=== PATIENT | male | born 1985 | race Caucasian/White ===

== ENCOUNTER 2020-03-31 11:07 | Emergency (ER) | payer OTHER ==
--- NOTE | 2020-03-31 11:16 | ED Physician Documentation ---
PD HPI UPPER EXT INJURY - Stated complaint Stated Complaint: L SHOULDER PX - Chief complaint Chief Complaint: Ext Problem - History obtained from History obtained from: Patient - History of Present Illness Location: Left, Shoulder Type of injury: Fall (tripped and fell to left lateral shoulder, with pain at anterior and AC area of shoulder.) Where injury occurred: Street (walking dog from his house) Timing - onset: Last night Timing - details: Abrupt onset, Still present Improved by: Rest Worsened by: Moving (extension and abduction mostly) Associated symptoms: No: Weakness, Numbness, Swelling Similar symptoms before: Has not had sx before Review of Systems Skin: denies: Abrasion (s), Laceration (s) Musculoskeletal: denies: Neck pain, Back pain Neurologic: denies: Focal weakness, Numbness, Head injury PD PAST MEDICAL HISTORY - Past Medical History Past Medical History: No - Allergies Allergies/Adverse Reactions: Allergies Allergy/AdvReac Type Severity Reaction Status Date / Time No Known Drug Allergies Allergy Verified 03/31/20 11:10 PD ED PE NORMAL - Vitals Vital signs reviewed: Yes - General General: Alert and oriented X 3, No acute distress, Well developed/nourished - HEENT HEENT: Atraumatic - Neck Neck: Supple, no meningeal sign, No bony TTP - Cardiac Cardiac: RRR, No murmur - Respiratory Respiratory: Clear bilaterally - Derm Derm: Normal color, Warm and dry - Extremities Extremities: Other (left shoulder tender anteriorly and at AC area without deformity. Has ROM in all directions. Pain mainly with extension and abduction against resistance. ) - Neuro Neuro: Alert and oriented X 3, No motor deficit, No sensory deficit Results - Vitals Vitals: Vital Signs - 24 hr 03/31/20 03/31/20 11:10 13:33 Temperature 36.5 C Heart Rate 84 72 Respiratory 16 16 Rate Blood Pressure 134/72 H 122/77 O2 Saturation 97 96 Oxygen O2 Source Room air - Rads (name of study) left shoulder Radiology: Prelim report reviewed (seems strain of shoulder with possible AC strain or rotator cuff, but seems low grade for either. ), See rad report PD MEDICAL DECISION MAKING - ED course Complexity details: reviewed results, considered differential, d/w patient Departure - Departure Disposition: 01 Home, Self Care Clinical Impression: Accidental fall Qualifiers: Encounter type: initial encounter Qualified Code(s): W19.XXXA - Unspecified fall, initial encounter Left shoulder strain Qualifiers: Encounter type: initial encounter Qualified Code(s): S46.912A - Strain of unspecified muscle, fascia and tendon at shoulder and upper arm level, left arm, initial encounter Condition: Stable Record reviewed to determine appropriate education?: Yes Instructions: ED Sprain Shoulder Follow-Up: TIM JEAN [Primary Care Provider] - Comments: No fractures or separations noted on your x-ray. I presume you have some injury of the ligaments or tendons through the shoulder and commonly this will hurt for several days to week. Avoid overhead reaching, push pull, repetitive use of the arm and to have it supported in a sling for a good part of the time. Gentle range of motion of the shoulder down low though so it does not stiffen up. Do this several times a day. Anti-inflammatory such as ibuprofen 3 times a day for the next week. Add Tylenol if needed. Recheck if not improved over the next several days to week. Forms: Activity restrictions Discharge Date/Time: 03/31/20 13:45
[2020-03-31] MEDS ORDERED: IBUPROFEN 800 MG TABLET PO STA (11:31)
--- NOTE | 2020-03-31 13:00 | XRAY Report ---
PROCEDURE: Shoulder 3 View LT INDICATIONS: fell walking dog last evening TECHNIQUE: 3 views of the shoulder were acquired. COMPARISON: None. FINDINGS: Bones: No fractures or dislocations. No suspicious bony lesions. Visualized ribs appear intact. Soft tissues: No suspicious soft tissue calcifications. IMPRESSION: No acute bony abnormality is seen by plain film. If there is focal tenderness or other strong clinical concern for a fracture that is not seen on this plain film study, please consider a dedicated CT for further evaluation. Reviewed by: Hi Seals MD on 03/31/2020 11:58 AM [facility] Approved by: Hi Seals MD on 03/31/2020 11:58 AM [facility] Station ID: [id number]
[2020-03-31 13:33] VITALS: BP 122/77
== END 2020-03-31 13:45 | disposition home or self-care (01) ==
LOC: ED 11:07
DX: S46.912A Strain of unspecified muscle, fascia and tendon at shoulder and upper arm level, left arm, initial encounter (principal); W01.0XXA Fall on same level from slipping, tripping and stumbling without subsequent striking against object, initial encounter; Y93.K1 Activity, walking an animal; Y92.410 Unspecified street and highway as the place of occurrence of the external cause
CPT/HCPCS: 73030; 99282; 99283; A9270

== ENCOUNTER 2023-07-21 14:29 | Outpatient (CLI) | payer OTHER ==
--- NOTE | 2023-07-21 15:13 | Sleep Patient Instructions ---
Sleep Center Visit Summary - Patient Visit Information Reason for Visit: Initial consultation - Patient Instructions Additional Instructions: You will continue with CPAP therapy with pressure set at 11-17 cmH2O. A supply prescription will be updated with your DME as soon as we get a copy of your last sleep study. We encourage you to continue to try to lose weight. Please follow up with the sleep care office in 1 year. - Clinic Information Contact: [facility] [address] [place] [email or web address] T: [phone]
--- NOTE | 2023-07-21 15:21 | SLEEP CARE CONSULTATION ---
Information from patient questionnaire entered by Lanette Sosa. I have reviewed and concur with the information entered by Lanette Sosa. This document represents the service I personally performed and the decisions made by me, Stephanie Jackson ARNP. History of Present Illness Service Date and Time: 07/21/2023 1429 Reason for Visit: New patient, Previously diagnosed sleep apnea, sleep apnea on CPAP therapy Chief Complaint: reports: Other (UPDATE SUPPLIES) Date of Onset: UPDATE SUPPLIES AND TO HAVE APPONITMENTS EVERY 6MONTHS FOR INSURANCE Usual bedtime: 2013 OR EARLIER Time it takes to fall asleep: 930-10PM Snores at night: Yes Observed to quit breathing while asleep: Yes Sleeps alone due to snoring: No Number of times waking at night: 1 Reasons for waking at night: reports: Bathroom, Other (SLEEP SCHEDULE DUE TO ) Toss, Turn, or Twitch while sleeping: Yes Recalls having dreams: No Usually gets out of bed at: 0464-0682 Feels refreshed in the morning: Yes Morning headache: No Sleepy or fatigued during the day: No Ever fallen asleep while driving: No Takes day naps: No Dreams during day naps: No Prior sleep studies: Yes Year and Where: 2015 [facility] Additional HPI information: LUIS MICHEL was previously diagnosed to have unknown, AHI unknown, sleep apnea- hypopnea syndrome and comes in today to establish care for CPAP therapy. He last had a sleep study in 2016 through [facility] here in [place], [place]. He does not have a copy of his last sleep study but states he was told it was severe, between 70-80 events per hour. - Parasomnia Symptoms Ever been unable to move upon waking from sleep: No Walks in sleep: No Talks in sleep: No Ever acted out dreams in sleep: No Ever felt weak in the knees when startled or emotional: No Bothered by creepy, crawly, restless sensations in legs: No Problems with memory or concentration: Yes CPAP Compliance Data - Data Reviewed with Patient Average duration of nightly device use: 7 hours 5 minutes Compliance rate %: 97 (90/90 days used) Current pressure setting (cmH2O): 11-17 Average residual AHI: 1.5 Central apnea: 0.2 Obstructive apnea: 0 Hypopnea: 0.2 Average large leak: 6.2 L/min Compliance data discussion: He has a [employer] Airsense 11 that was updated in 07/2021. He is using a nasal cushion, Dreamwear, small cushion. He gets his supplies from [employer]. Subjective Patient concerns: reports: air blowing in eyes (just needs adjustment), dry mouth, nose, throat (dry mouth, more often). denies: aerophagia, mask discomfort, mask leak noise, condensation in mask/hose, nasal congestion, epistaxis Observed to snore while using device: No Current pressure setting perceived as: comfortable On therapy, patient: reports: sleeping better, awakening more refreshed, being more awake and alert during the day, more rested overall. denies: drowsiness while driving Initial [place] Sleepiness Scale score: 3 (07/21/23) Past Medical History Past Medical History: reports: Other (no significant medical conditions at this time) Social History The patient's occupation is a AM. Patient is Single and lives in . Have you smoked in the past 12 months: No Alcohol use: Yes Alcohol amount and frequency: 1-3 1-2 X A WEEK Caffeine use: Yes Caffeine amount and frequency: 1-2 EVERYDAY IN THE MORNING Family History Family history of sleep disordered breathing: Yes Family Hx Sleep Apnea: Mother: Snoring, Sleep apnea - Treated, Father: Snoring, Sleep apnea - Untreated Allergies and Home Medications Known drug allergies: No Drug allergies reviewed: Yes Home medication list reviewed: Yes (no daily medications) Allergy and home medication list: Allergies No Known Drug Allergies Allergy (Verified 07/20/23 13:38) Review of Systems Weight gain over past 5 years: 20 Cardiovascular: denies: high blood pressure Respiratory: denies: shortness of breath Gastrointestinal: denies: heartburn Neurological: denies: headaches Psychiatric: denies: anxiety, depression Ear/Nose/Throat: reports: dry mouth/throat. denies: tonsillectomy Immunologic: denies: allergies to food or environment Physical Exam Vital signs obtained and entered by: LANETTE Neves MA Blood Pressure: 132/80 (LEFTY ARM) Cuff size: regular Heart Rate: 64 O2 Saturation: 98 Height: 5 ft 9 in Weight: 217 lb Body Mass Index: 32.0 BMI Classification: Obese Neck circumference: 16 Heart: regular rate and rhythm Lungs: clear bilaterally Impression and Plan 1. Obstructive Sleep Apnea-Hypopnea Syndrome, unknown, with good treatment compliance and good apnea control. On CPAP therapy, the patient has better sleep quality and is more rested overall. We have requested a copy of his sleep study. Once I have a copy of his sleep study, I will send an updated prescription for supplies to his DME, [facility]. If I am unable to get a copy, then I will order another verifying sleep study. Patient has significant improvement of their sleep apnea and is satisfied with current CPAP therapy. He has had some trouble with oral dryness. He states he does not use the humidifier. He may also be oral venting. I encouraged him to try either a chinstrap or mouth strips to keep his mouth closed while sleeping. This should reduce oral dryness. He voiced understanding. Patient's apnea severity and rationale for treatment to reduce apnea, improve sleep quality and reduce cardiovascular and cerebrovascular events was reviewed. 2. Obesity, unspecified. Currently patients BMI is 32. Obesity increases the risk of apnea, CPAP pressure requirements and overall health risks especially cardiovascular and diabetes. Thus patient is advised to lose weight. * Continue auto CPAP pressure at 11-17 cmH2O * Obtain copy of sleep study or order new study * Update supply prescription once I have copy of sleep study * Notify me if snoring with mask or feeling that the pressure is too much or too little * Attempt to lose weight * Call this office if any problems using CPAP * Return for follow up in 12 months, or sooner if concerns arise Counseling Topics: Spare mask, Weight loss health impact Visit Type: In Office Time Spent with Patient (minutes): 33 Provider Statement: I spent 100% of the Face to Face Visit with the patient with greater than 50% spent counseling the patient and coordination of care.
[2023-07-21 15:25] VITALS: BP 132/80; O2SAT 98
== END 2023-07-21 14:30 | disposition home or self-care (01) ==
LOC: SC 14:29
PROVIDERS: ATTEND Nurse Practitioner Family
DX: G47.33 Obstructive sleep apnea (adult) (pediatric) (principal); E66.9 Obesity, unspecified; Z68.32 Body mass index [BMI] 32.0-32.9, adult
CPT/HCPCS: 99203; 99212